=== PATIENT | female | born 1965 | race Two or more races ===

== ENCOUNTER 2017-02-18 17:01 | Emergency (ER) | payer SELFPAY ==
[~2017-02-18] VITALS: Ht 167.6 cm; Wt 77.0 kg
[2017-02-18] MEDS ORDERED: KETOROLAC 30MG/ML VIAL IV STA (19:15)
[2017-02-18] MEDS ORDERED: FAMOTIDINE 20MG/2ML VIAL IV ONE (19:30)
[2017-02-18 19:51] LABS: CHLORIDE 104 mEq/L (98-107)
[2017-02-18 19:53] LABS: CLARITY URINE CLOUDY (CLEAR); COLOR URINE YELLOW (YELLOW); GLUCOSE URINE NEGATIVE (NEGATIVE); KETONES URINE NEGATIVE (NEGATIVE); LEUKOCYTE ESTERASE URINE NEGATIVE (NEGATIVE); NITRITE URINE NEGATIVE (NEGATIVE); OCCULT BLOOD URINE 1+ (NEGATIVE); PROTEIN URINE 2+ (NEGATIVE); SPECIFIC GRAVITY URINE 1.014 (1.005-1.030); UROBILINOGEN URINE 0.2 E.U./dL (0.2-1.0)
[2017-02-18 19:56] LABS: BASOPHILS % 1.3 % (0.0-2.0); EOSINOPHILS % 0.2 % (0.0-5.0); HEMATOCRIT. 39.3 % (36.0-48.0); HEMOGLOBIN. 13.7 g/dL (12.0-16.0); LYMPHOCYTES % 30.8 % (20.0-50.0); MEAN CORPUSCULAR HEMOGLOBIN 31.7 pg (28.0-32.0); MEAN CORPUSCULAR VOLUME 90.7 fL (81.0-99.0); MEAN PLATELET VOLUME 8.4 fl (7.4-10.4); MONOCYTES % 5.4 % (2.0-8.0); NEUTROPHILS % 62.3 % (40.0-76.0); PLATELET 170 x1000/uL (130-400); RED BLOOD CELL COUNT 4.33 mill/uL (4.2-5.4); RED CELL DISTRIBUTION WIDTH 16.3 % (11.6-14.6)
[2017-02-18 19:58] LABS: HCG SCREEN NEGATIVE
[2017-02-18 19:59] LABS: CARBON DIOXIDE 26 mEq/L (21-32)
[2017-02-18 20:10] LABS: *AMPHETAMINES SCREEN URINE NEGATIVE (NEGATIVE); *BARBITURATES SCREEN URINE NEGATIVE (NEGATIVE); *BENZODIAZEPINES SCREEN URINE NEGATIVE (NEGATIVE); *COCAINE SCREEN URINE NEGATIVE (NEGATIVE); CANNABINOID URINE SCREEN NEGATIVE (NEGATIVE); METHADONE URINE SCREEN NEGATIVE (NEGATIVE); OPIATES URINE SCREEN NEGATIVE (NEGATIVE); PHENCYCLIDINE URINE SCREEN NEGATIVE (NEGATIVE)
[2017-02-18 20:11] VITALS: BP 144/80
[2017-02-18] MEDS ORDERED: TRAMADOL 50MG TABLET PO ONE (21:15)
== END 2017-02-18 21:31 | disposition home or self-care (01) ==
LOC: ER 17:39
DX: K74.60 Unspecified cirrhosis of liver (principal); R10.9 Unspecified abdominal pain; E11.9 Type 2 diabetes mellitus without complications; Z90.710 Acquired absence of both cervix and uterus
CPT/HCPCS: 36415; 71010; 74176; 80053; 80305; 81001; 83690; 84703; 85025; 96374; 96375; 99285; J1885; J3490; Z7610